=== PATIENT | female | born 1960 | race African-American/Black ===

== ENCOUNTER 2019-09-26 10:54 | Emergency (ER) | payer BC, OTHER ==
--- NOTE | 2019-09-26 11:15 | UC ---
Abdominal Pain Female HPI - HPI Summary HPI Summary: CHIEF COMPLAINT: substernal burning pain. HPI: This is a 59 female who has had approximately 7 days of. The discomfort. According to the her son, she is also suffered from constipation. The patient reports her discomfort as burning and radiating up into her throat. The condition has worsened since she took MiraLAX and had 2 bowel movements 3 days ago. Description of Pain: Cramping and burning, mid abdomen. VITAL SIGNS REVIEWED. Within normal limits unless noted here. Patient is afebrile. NURSES NOTE REVIEWED. "C/o discomfort, feeling of warmth coming form abdomen to chest. Started a couple of days ago. Nausea." - History of Current Complaint Chief Complaint: UCAbdominalPain Stated Complaint: ABDOMINAL PAIN Time Seen by Provider: 09/26/19 11:11 Pain Intensity: 0 Allergies/Adverse Reactions: Allergies Allergy/AdvReac Type Severity Reaction Status Date / Time No Known Allergies Allergy Verified 09/26/19 10:59 Home Medications: Home Medications Amitriptyline TAB* [Elavil TAB*] 25 mg PO BEDTIME 09/26/19 [History Confirmed ] Amlodipine Besylate [Norvasc] 5 mg PO DAILY 09/26/19 [History Confirmed 09/26/19 ] Gabapentin CAP(*) [Neurontin 300 CAP(*)] 300 mg PO BID 09/26/19 [History Confirmed 09/26/19] Hydrochlorothiazide TAB* [Hydrodiuril TAB*] 20 mg PO DAILY 09/26/19 [History Confirmed 09/26/19] Hydrochlorothiazide TAB* [Hydrodiuril TAB*] 25 mg PO DAILY 09/26/19 [History Confirmed 09/26/19] Meloxicam [Mobic] 15 mg PO BID PRN 09/26/19 [History Confirmed 09/26/19] Nabumetone TAB* [Relafen TAB*] 750 mg PO DAILY 09/26/19 [History Confirmed 09/26] SUMAtriptan TAB* [Imitrex TAB*] 50 mg PO DAILY PRN 09/26/19 [History Confirmed 09/26/19] PMH/Surg Hx/FS Hx/Imm Hx - Additional Past Medical History Additional PMH: PAST MEDICAL HISTORY- CHRONIC and RECURRENT HEALTH PROBLEM LIST REVIEWED. Information relevant to present complaint: Noncontributory. VISIT HISTORY REVIEWED. MEDICATIONS & ALLERGIES REVIEWED. HYPERTENSION STATUS: hx of HTN; being treated. FAMILY HISTORY: Patient denies significant history of family illness. SOCIAL HISTORY: Smoker: Nonsmoker Home: Lives with her area Employment: Works in the home Previously Healthy: Yes - Surgical History Surgical History: None - Social History Alcohol Use: None Substance Use Type: None Smoking Status (MU): Never Smoked Tobacco Review of Systems All Other Systems Reviewed And Are Negative: Yes Respiratory: Positive: Negative Cardiovascular: Positive: Negative Gastrointestinal: Positive: Nausea, Other - CRAMPING AND BURNING PAIN Is Patient Immunocompromised?: No Physical Exam - Summary Physical Exam Summary: Appearance: The patient is well-appearing, is in no pain or distress, and is well-nourished. Eyes: Conjunctiva are clear. Pupils are equal and reactive to light and accommodation. Extra ocular muscle movement is intact. ENT: The hearing is grossly normal, the pharynx is normal, and the TMs are normal. There is no muffled or hoarse voice. No stridor. Neck: The neck is supple and there is no lymphadenopathy. Respiratory: The chest is non-tender to palpation and without crepitus. The lungs are clear, there are normal breath sounds, and there is no respiratory distress. No wheezes, rales or rhonchi. Cardiovascular: Heart sounds reveal a regular rate and rhythm. There are no clicks, rubs or murmurs. There are no carotid bruits or thrills. Circulation is grossly intact. Abdomen: The abdomen is soft and nontender. There are no peritoneal signs. There is no organomegaly. Bowel sounds are present and within normal limits. No point tenderness at McBurneys point. No CVA tenderness. Musculoskeletal: Strength is intact. The patient moves all extremities. Neurological: The patient is alert. Motor and sensory are examination grossly intact. Speech is normal. Psychological: The patient displays age appropriate behavior, and is conversant. GCS=15. Skin: Negative for rashes. x ray: 1. NONSPECIFIC BOWEL GAS PATTERN. 2. LARGE AMOUNT OF STOOL THROUGHOUT THE COLON. 3. LEFT NEPHROLITHIASIS Triage Information Reviewed: Yes Vital Signs: Initial Vital Signs Temp 97.7 F 09/26/19 10:57 Pulse 85 09/26/19 10:57 Resp 16 09/26/19 10:57 BP 134/87 02/06/20 10:57 Pulse Ox 97 09/26/19 10:57 Vital Signs Reviewed: Yes Abd Pain Female Course/Dx - Course Course Of Treatment: This is a 59 female who has had approximately 7 days of. The discomfort. According to the her son, she is also suffered from constipation. The patient reports her discomfort as burning and radiating up into her throat. The condition has worsened since she took MiraLAX and had 2 bowel movements 3 days ago. Description of Pain: Cramping and burning, mid abdomen. Physical examination is unremarkable. There are no peritoneal signs. Flat and upright of the abdomen: stool in bowel. No obstruction or perforation. My diagnosis is constipation and gastritis/GERD. The patient will be treated with MiraLAX, Mylanta, and Prilosec. - Differential Dx/Diagnosis Differential Diagnosis: Bowel Obstruction, Peptic Ulcer Disease, Other - constipation Provider Diagnosis: Constipation, GERD (gastroesophageal reflux disease) Discharge ED - Sign-Out/Discharge Documenting (check all that apply): Patient Departure All imaging exams completed and their final reports reviewed: Yes - Discharge Plan Condition: Stable Disposition: HOME Prescriptions: Omeprazole CAP (NF) [Prilosec CAP* 20 MG] 20 mg PO DAILY #20 cap.dr DURANT 1 Patient Education Materials: Gastritis (DC), Constipation (DC), High Fiber Diet (ED) Referrals: Robin Snyder MD [Primary Care Provider] - Additional Instructions: WE DISCUSSED: YOU HAVE CONSTIPATION AND YOU HAVE TOO MUCH STOMACH ACID. I HAVE GIVEN YOU A PILL FOR THE ACID. YOU CAN ALSO TAKE MYLANTA, BUT FIRST YOU NEED TO TAKE MIRALAX AND DRINK A LOT OF FLUIDS AND ADD SOME FIBER SUCH PRUNES OR PRUNE JUICE TO HELP CLEAR OUT YOUR BOWEL. PLEASE SEEK CARE AT THE EMERGENCY DEPARTMENT IF SYMPTOMS WORSEN OR IF NEW SYMPTOMS DEVELOP. FOLLOW UP WITH YOUR PRIMARY CARE PHYSICIAN IF CONDITION CONTINUES BEYOND 3 DAYS WITHOUT IMPROVEMENT. YOUR DIAGNOSIS IS: CONSTIPATION; GASTRITIS. YOUR PRESCRIPTION RECOMMENDATION IS: FOR PAIN AND/OR SLEEP: acetaminophen (Tylenol and other brand names) 500mg - 1000mg every 8 hours. YOU NEED TO BE RECHECKED BY YOUR DOCTOR IN TWO WEEKS. - Billing Disposition and Condition Condition: STABLE Disposition: Home
[2019-09-26] MEDS ORDERED: Lidocaine 2% VISCOUS* 15 ML UDC PO ONE (11:25)
[2019-09-26] MEDS ORDERED: Al Hydrox/Mg Hydrox/Simet LIQ* 30 ML UDC PO ONE (11:25)
[2019-09-26 13:33] VITALS: BP 133/76
== END 2019-09-26 13:30 | disposition home or self-care (01) ==
LOC: UCEAST 10:54
DX: K59.00 Constipation, unspecified (principal); K21.9 Gastro-esophageal reflux disease without esophagitis; N20.0 Calculus of kidney
CPT/HCPCS: 74019; 99212; A9270-GY; G0463